=== PATIENT | female | born 1940 | race Caucasian/White ===

== ENCOUNTER 2016-08-02 11:06 | Emergency (ER) | payer MEDICARE ==
[~2016-08-02] VITALS: Ht 154.9 cm; Wt 78.8 kg
[~2016-08-02 11:06] MED LIST: ACYCLOVIR400 MG PO; ASA LOW DOSE81 MG OR; ASCORBIC ACD1000 MG PO; ASPIRIN EC81 MG PO; ASPIRIN81 MG PO; C 500 PO; CARDIZEM60 MG OR; CELEBREX200 MG PO; CLOBETASOL0.053 EX; CO Q-10400 MG PO; COMBIVENT IN; COMBIVENT RESPIMAT IN; COMBIVIR 1501 COMBO PO; COZAAR100 MG PO; COZAAR50 MG PO; CRESTOR5 MG PO; CRIXIVAN400 MG PO; DOXYCYC MONO100 M2 PO; EFFEXOR XR150 MG PO; EFFEXOR100 MG PO; ESTRACE VAG0.1 MG/GM VA; EX-LAX PO; FISH OIL1000 MG OR; FISH OIL1000 MG PO; FISH OIL1400 MG OR; HYDROCHLOROT25 MG PO; K-DUR/KLOR-CON10 MEQ OR; L-LYSINE500 M2 PO; LACTOSE PO; LACTULOSE PO; LASIX40 MG OR; LEVAQUIN500 MG PO; LIDOCAINE5 % EX; LIPITOR20 MG OR; LORTAB 5 OR; MAG OXIDE400 MG PO; NAPROSYN500 MG OR; NEXIUM40 M1 PO; NIACIN PO; OMEGA-3 KRILL500 MG OR; PERCOCET 5/321 COMBO PO; PERCOCET 5/325M1 TAB OR; PERCOCET 5/325M1 TAB PO; PREDNISONE20 MG OR; PREMARIN0.625 MG OR; PREVACID30 M2 PO; TYLOPHEN500 MG PO; ULTRAM50 MG PO; ZINC50 M1 PO; ZOFRAN ODT4 MG PO; [UNRECOGNIZED DRUG - REMARK]
[2016-08-02] MEDS ORDERED: AMLODIPINE5 MG PO (11:29)
[2016-08-02] MEDS ORDERED: DOCUSATE CAL240 MG PO (11:30)
[2016-08-02] MEDS ORDERED: VITAMIN D32000 UNIT PO (11:38)
[2016-08-02 12:23] LABS: URINE BILIRUBIN - DIPSTICK NEGATIVE (NEGATIVE); URINE BLOOD DIPSTICK TRACE-INTACT (NEGATIVE); URINE CLARITY CLEAR; URINE COLOR YELLOW; URINE GLUCOSE - DIPSTICK NEGATIVE (NEGATIVE); URINE KETONE NEGATIVE (NEGATIVE); URINE LEUK ESTERASE NEGATIVE (NEGATIVE); URINE NITRITE - DIPSTICK NEGATIVE (Negative); URINE PH 5.5 (4.5-8.0); URINE PROTEIN - DIPSTICK NEGATIVE (NEG-TRACE); URINE UROBILINOGEN - DIPSTICK 0.2 E.U./dL (0.2)
[2016-08-02] MEDS ORDERED: ULTRAM50 M1 PO (13:39)
[2016-08-02] MEDS ORDERED: FLEXERIL PO (13:39)
[2016-08-02 14:03] VITALS: BP 129/73
== END 2016-08-02 14:03 | disposition home or self-care (01) ==
LOC: ED 11:06
PROVIDERS: Emergency Medicine
DX: S73.101A Unspecified sprain of right hip, initial encounter (principal); M79.1 Myalgia; M25.551 Pain in right hip; M79.651 Pain in right thigh

== ENCOUNTER 2018-08-29 11:53 | Emergency (ER) | payer MEDICARE ==
[~2018-08-29] VITALS: Ht 154.9 cm; Wt 82.0 kg
[~2018-08-29 11:53] MED LIST changes: +AMLODIPINE5 MG PO; +ANTIVERT12.5 MG PO; +DOCUSATE CAL240 MG PO; +ESTRACE2 M1 PO; +FLEXERIL PO; +SLOW-MAG PO; +ULTRAM50 M1 PO; +VITAMIN D32000 UNIT PO
[2018-08-29] MEDS ORDERED: ASPIRIN 8181 MG PO (12:26)
[2018-08-29] MEDS ORDERED: FOLIC ACID1 MG PO (12:26)
[2018-08-29] MEDS ORDERED: MAGNESIUM 250 M1 TAB PO (12:28)
[2018-08-29] MEDS ORDERED: VITAMIN D33000 UNIT PO (12:29)
[2018-08-29] MEDS ORDERED: COLACE100 MG PO (12:30)
[2018-08-29] MEDS ORDERED: BIOTIN5000 MC1 PO (12:31)
[2018-08-29] MEDS ORDERED: LYSINE1000 MG PO (12:32)
[2018-08-29] MEDS ORDERED: TRAMADOL HYDROC50 MG PO (13:30)
[2018-08-29 13:40] VITALS: BP 119/55
== END 2018-08-29 13:40 | disposition home or self-care (01) ==
LOC: ED 11:53
DX: M19.072 Primary osteoarthritis, left ankle and foot (principal); I10 Essential (primary) hypertension

== ENCOUNTER 2018-10-16 06:46 | Day surgery (SDC) | payer MEDICARE ==
[~2018-10-16] VITALS: Ht 154.9 cm; Wt 81.6 kg
[~2018-10-16 06:46] MED LIST changes: +ASPIRIN 8181 MG PO; +BIOTIN5000 MC1 PO; +COLACE100 MG PO; +FOLIC ACID1 MG PO; +LYSINE1000 MG PO; +MAGNESIUM 250 M1 TAB PO; +NIACIN SR500 MG; +SELENIUM200 MC1 PO; +SENOKOT8.6 MG PO; +TRAMADOL HYDROC50 MG PO; +VITAMIN D33000 UNIT PO
[2018-10-16] MEDS ORDERED: CELEBREX100 M1 PO (07:04)
[2018-10-16] MEDS ORDERED: COMBIVENT RESPIMAT IN (07:05)
[2018-10-16] MEDS ORDERED: HYZAAR1 TAB PO (07:07)
[2018-10-16 08:59] VITALS: BP 143/66
== END 2018-10-16 10:28 | disposition home or self-care (01) ==
LOC: ORM 06:46
PROVIDERS: ATTEND Surgery
PROC: 0DJD8ZZ Inspection of Lower Intestinal Tract, Via Natural or Artificial Opening Endoscopic (ICD-10-PCS; principal; 2018-10-16)
PROC: 0DJ08ZZ Inspection of Upper Intestinal Tract, Via Natural or Artificial Opening Endoscopic (ICD-10-PCS; 2018-10-16)
DX: Z12.11 Encounter for screening for malignant neoplasm of colon (principal); K57.30 Diverticulosis of large intestine without perforation or abscess without bleeding; K44.9 Diaphragmatic hernia without obstruction or gangrene; K59.09 Other constipation; I10 Essential (primary) hypertension; Z86.010 Personal history of colon polyps; Z79.899 Other long term (current) drug therapy
CPT/HCPCS: 43235; G0105

== ENCOUNTER 2018-11-05 14:26 | Emergency (ER) | payer MEDICARE ==
[~2018-11-05] VITALS: Ht 154.9 cm; Wt 82.7 kg
[~2018-11-05 14:26] MED LIST changes: -AMLODIPINE5 MG PO; +CELEBREX100 M1 PO; +HYZAAR1 TAB PO; -NIACIN SR500 MG; +NIACIN SR500 MG PO; +NORVASC2.5 M1 PO
[2018-11-05] MEDS ORDERED: DOXYCYC MONO100 M2 PO (16:12)
[2018-11-05 16:20] VITALS: BP 123/60
== END 2018-11-05 16:20 | disposition home or self-care (01) ==
LOC: ED 14:26
DX: L03.116 Cellulitis of left lower limb (principal); I10 Essential (primary) hypertension

== ENCOUNTER 2018-11-12 08:14 | Inpatient (IN) | payer MEDICARE ==
[2018-11-12] VITALS (11 sets, daily range): BP systolic 116–154; BP diastolic 51–74
[~2018-11-12] VITALS: Ht 154.9 cm; Wt 90.0 kg
--- NOTE | 2018-11-12 08:14 | NUR ---
PT TO [facility] VIA WC WITH TACHYPNEA NO DISRTESS, MD TO BEDSIDE
--- NOTE | 2018-11-12 08:25 | NUR ---
PT RESTING ON STRETCHER, STATES SHE CAME INTO WORK AND STARTED FEELING SOB ON THE WALK IN ANDD DOWN THE HALLWAYS, STATES SHE HAS AN INHALER AT HOME BUT THAT HER LUNG DOCTOR DOESN'T THINK ITS HER LUNGS AND HER HEART DOCTOR SAYS ITS NOT HER HEART, SO SHE ISN'T SURE WHAT THE ACTUAL PROBLEM IS, AWARE OF PLANNED NEB TREATMENT AND LAB WORK, CALL MORGAN WITHIN REACH
[2018-11-12 09:13] LABS: HEMATOCRIT 38.1 % (37.0-47.0); HEMOGLOBIN 12.8 g/dl (12.0-16.0); IMMATURE GRANULOCYTES 0.2 % (0.0-5.0); MEAN CELL VOLUME 92.3 fL CALC (80.0-100.0); MEAN CORPUSCULAR HGB CONC 33.6 g/L CALC (32.0-36.0); NEUT# 2.46 thou/uL (2.00-7.15); RED BLOOD COUNT 4.13 mill/uL (4.20-5.60); RED CELL DISTRI WIDTH 13.4 % (11.5-15.5)
--- NOTE | 2018-11-12 09:23 | NUR ---
TOLERRATED NEB TREATMENT WELL STATES FEELING BETTER FAR SOB BUT STILL FEELS OFF AND HAS FOR A "WHILE NOW", COMFORT MEASURES REINFORCED, TELEMETRY IN PLACE AND BP STABLE, WILL CONTINUE TO MONITOR.
[2018-11-12 09:40] LABS: ALBUMIN 4.3 g/dL (3.2-5.0); ALKALINE PHOSPHATASE 59 u/l (38-126); ANION GAP 17 (6-22 (CALC)); BILIRUBIN, TOTAL 0.3 mg/dL (0.0-1.4); BUN 25 mg/dL (8-23); BUN/CREATININE RATIO 30 (12-20 (CALC)); CARBON DIOXIDE 26 mmol/l (22-30); CHLORIDE 101 mmol/l (95-108); CREATININE 0.8 mg/dL (0.5-1.0); GFR > 60 ML/MIN (>=60 (CALC)); GFR FOR AFR.AMER. > 60 ML/MIN (>=60 (CALC)); POTASSIUM 3.9 mmol/l (3.5-5.1); SGOT/AST 29 u/l (9-36); SODIUM 140 mmol/l (137-146); TOTAL PROTEIN 7.6 g/dL (6.3-8.2)
--- NOTE | 2018-11-12 10:21 | NUR ---
PT RESTING OFFERS NO COMPLAINTS, AWARE OF PLANNED CTA, IV ACCESS INTACT, STATES STILL JUST NOT FEELING "RIGHT".
--- NOTE | 2018-11-12 10:26 | NUR ---
PT AMBULATED TO BATHROOM SUPPLIES PROVIDED FOR URINE COOLECTION WELL INSTRUCTION FOR CLEANSING PRIOR TO COLLECTION
--- NOTE | 2018-11-12 11:30 | NUR ---
PT AWARE OF PLANNED ADMISSION RELATED TO CT RESULTS, PLAN OF CARE DISCUSSED, COMFORT MEASURE PROVIDED PT HAS 20G IN LEFT AC STARTED BY CT SCAN FOR CTA EARLIER, SITE SECURED UPON RETURN. CALL MORGAN WITHIN REACH
[2018-11-12 11:41] LABS: PROTHROMBIN TIME 10.2 SECONDS (9.0-12.5)
--- NOTE | 2018-11-12 12:23 | NUR ---
PT REMAINS IN RADIOLOGY AWARE OF NEED BC AND LAB WORK WELL PLANNED HEPARIN GTT UPON RETURN FROM RADIOLOGY.
--- NOTE | 2018-11-12 14:05 | NUR ---
IV ABT INFUSING PT TOLERATTEING WITHOUT INCIDENT, AWARE OF PLANNED ADMISSION AND PLAN OF CARE, CALL MORGAN WITHIN REACH
--- NOTE | 2018-11-12 14:30 | NUR ---
REPORT CALLED TO LUI RN IN ICU AWARE OF NEXT PTT DUE AT 191
--- NOTE | 2018-11-12 15:00 | NUR ---
PT TO ICU ROOM 2 VIA STRECTCHER ACCOMPNIED BY ER NURSE. PT ABLE TO TRANSFER FROM STRETCHER TO BED BY SELF. PT ADMITTER FOR PULMONARY EMBOLI. RESP ARE EVEN AND UNLABORED. O2 SAT 98% ON O2 2L NC. NO [place] NOTED. LUNGS ARE CLEAR THROUGHOUT. ADMISSION ASSESSMENT COMPLETED AT THIS TIME. IV PATENT X1. HEPARIN DRIP INFUSING PER FLOW SHEET AND PROTOCOL. ORIENTED PT TO ROOM AND UNIT. CALL LIGHT IN REACH. WILL CONTINUE TO MONITOR.
--- NOTE | 2018-11-12 15:15 | NUR ---
PT TRANSFERRED TO ICU BED 2 VIA STRETCHER ON HEPARIN GTT AND MONITOR . VSS STABLE PT AWARE OF PENDING PTT DUE AT 1915 PM, ACEPTING NURSES AT BEDSIDE UPON ARRRIVAL TO UNIT.
--- NOTE | 2018-11-12 17:12 | NUR ---
PT RESTING IN BED READING BOOK RESP ARE EVEN AND UNLABORED. NO DISTRESS NOTED. CALL LIGHT IN REACH. WILL CONTINUE TO MONITOR.
--- NOTE | 2018-11-12 17:30 | NUR ---
PT SET UP FOR PM MEAL
--- NOTE | 2018-11-12 17:40 | NUR ---
DR BLANDON AT BEDSIDE AT THIS TIME
--- NOTE | 2018-11-12 18:17 | NUR ---
PT SITTING UP IN BED READING BOOK. RESP ARE EVEN AND UNLABORED. NO DISTRESS NOTED. CALL LIGHT IN REACH. WILL CONTINUE TO MONITOR.
--- NOTE | 2018-11-12 18:24 | NUR ---
LAB AT BEDSIDE AT THIS TIME
--- NOTE | 2018-11-12 19:45 | NUR ---
ASSESSMENT COMPLETED. PT. WITHOUT IV SITE AT THIS TIME AND PER REPORT MD IS AWARE OF NO IV ACCESS. VS OBTAINED. PT. HAS MULTIPLE SMALL OPEN AREAS AND BLISTERING NOTED TO RIGHT ARM, PHOTOS ARE IN CHART. PT. DENIES NEEDS/PAIN. SILVEIRA CATHETER INTACT AND DRAINING AT GRAVITY LEVEL. BEAR HUGGER IN PLACE TEMP 96.8. UPDATED ON POC. ENCOURAGED TO CALL FOR ANY NEEDS. CALL LIGHT IS IN REACH.
--- NOTE | 2018-11-12 20:00 | NUR ---
ASSESSMENT COMPLETED. NO DISTRESS NOTED; DENIES NEEDS/PAIN. FRESH WATER PROVIDED. IV SITES X2 PATENT AND HEPARIN GTT INFUSING @1400UNITS/HR; AWAITING PTT RESULT FOR ADJUSTMENT. ON [employer] ADVISOR AND REMAINS SR-STACH; VSS. INSTRUCTED TO CALL FOR ANY NEEDS. CALL LIGHT IS IN REACH. WILL CONTINUE TO MONITOR.
--- NOTE | 2018-11-12 20:15 | NUR ---
@2011 RECEIVED PTT CRITICAL LAB OF 166.9; VERIFIED HEPARIN ADJUSTMENT PER PROTOCOL WITH OTHER ICU NURSE AND ADJUSTED PER PROTOCOL SHEET; SEE FLOWSHEET.PT. UPDATED AND VERBALIZES UNDERSTANDING.
--- NOTE | 2018-11-12 21:15 | NUR ---
HEPARIN GTT RESTARTED PER PROTOCOL. CPAP AT BEDSIDE (RT SET UP). PT. VOICES NO CONCERNS. CALL LIGHT IS IN REACH. WILL CONTINUE TO MONITOR. INSTRUCTED TO CALL FOR ALL OOB NEEDS.
--- NOTE | 2018-11-12 23:00 | NUR ---
PT. SITTING UP IN BED WITH NO DISTRESS NOTED; DENIES NEEDS/PAIN. VSS. HEPARIN GTT INFUSING WITHOUT DIFFICULTIES. ENCOURAGED TO CALL FOR ANY NEEDS. CALL LIGHT IS IN REACH. WILL CONTINUE TO MONITOR.
[2018-11-13] VITALS (12 sets, daily range): BP systolic 116–147; BP diastolic 57–68
--- NOTE | 2018-11-13 02:15 | NUR ---
RESTING IN BED ON LEFT SIDE WITH EYES CLOSED; CPAP IN PLACE. NO DISTRESS NOTED. RESP. EVEN AND UNLABORED. CALL LIGHT IS IN REACH.
[2018-11-13 03:17] LABS: HEMATOCRIT 35.2 % (37.0-47.0); HEMOGLOBIN 11.6 g/dl (12.0-16.0); MEAN CELL VOLUME 93.6 fL CALC (80.0-100.0); MEAN CORPUSCULAR HGB 30.9 pG CALC (26.0-32.0); RED BLOOD COUNT 3.76 mill/uL (4.20-5.60); RED CELL DISTRI WIDTH 13.6 % (11.5-15.5)
--- NOTE | 2018-11-13 03:39 | NUR ---
PT. C/O GENERALIZED PAIN AND SEXTON 4/10; MEDICATED WITH ORDERED TYLENOL; WILL REASSESS. ASSISTED OOB TO BSC TO VOID AND BACK TO BED. PT. WITH STEADY GAIT. NO DISTRESS NOTED; DENIES FURTHER NEEDS. CALL LIGHT IS IN REACH.
[2018-11-13 03:56] LABS: ANION GAP 13 (6-22 (CALC)); BUN 20 mg/dL (8-23); BUN/CREATININE RATIO 21 (12-20 (CALC)); CARBON DIOXIDE 26 mmol/l (22-30); CHLORIDE 105 mmol/l (95-108); CREATININE 0.9 mg/dL (0.5-1.0); GFR 60 ML/MIN (>=60 (CALC)); GFR FOR AFR.AMER. > 60 ML/MIN (>=60 (CALC)); POTASSIUM 4.7 mmol/l (3.5-5.1); SODIUM 139 mmol/l (137-146)
--- NOTE | 2018-11-13 04:20 | NUR ---
ADJUSTED HEPARIN GTT PER PROTOCOL BASED OFF PTT. PT. UPDATED WITH POC. DENIES NEEDS. CALL LIGHT IS IN REACH.
--- NOTE | 2018-11-13 07:30 | NUR ---
PT SITTING UP IN BED AWAKRE. PT IS ALERT AND ORIENTED X3. SHIFT ASSESSMENT COMPLETED AT THIS TIME. IV PATENT X2. PT VOICES NO COMPLAINTS AT THIS TIME. CALL LIGHT IN REACH. WILL CONTINUE TO MONITOR.
--- NOTE | 2018-11-13 08:15 | NUR ---
PT SET UP FOR AM MEAL
--- NOTE | 2018-11-13 09:00 | NUR ---
PT ASSISTED TO BSC TO VOID PT TOLERATED WELL.
--- NOTE | 2018-11-13 09:55 | NUR ---
LAB AT BEDSIDE AT THIS TIME
--- NOTE | 2018-11-13 10:02 | NUR ---
DR BLANDON AT BEDSIDE AT THIS TIME
--- NOTE | 2018-11-13 10:49 | NUR ---
HEPARIN STOPPED AT THIS TIME PER MD ORDER
--- NOTE | 2018-11-13 11:40 | NUR ---
PT SET UP FOR NOON MEAL
--- NOTE | 2018-11-13 11:56 | NUR ---
ECHO AT BEDSIDE AT THIS TIME.
--- NOTE | 2018-11-13 13:30 | NUR ---
PT ASSISTED AT THIS TIME WITH HYGIENE. PT TOLERATED WELL.
--- NOTE | 2018-11-13 14:33 | NUR ---
VISITORS AT BEDSIDE AT THIS TIME
--- NOTE | 2018-11-13 16:00 | NUR ---
PT RESTING IN BED ASLEEP. RESP ARE EVEN AND UNLABORED. NO DISTRESS NOTED. CALL LIGHT IN REACH. WILL CONTINUE TO MONITOR.
--- NOTE | 2018-11-13 17:30 | NUR ---
PT SET UP WITH PM MEAL
--- NOTE | 2018-11-13 18:18 | NUR ---
PT SITTING UP IN BED. RESP ARE EVEN AND UNLABORED. NO DISTRESS NOTED. CALL LIGHT IN REACH. WILL CONTINUE TO MONITOR.
--- NOTE | 2018-11-13 19:25 | NUR ---
PATIENT SITS WITH HOB NEAR 90 DEGREES, HAS A VISITOR AT BEDSIDE WHOM STEPS OUT SO PATIENT CAN BE ASSESSED. PT ALERT AND ORIENTED X4. ON 2L/MIN NC, SATS 99%. AFEBRILE. ALERT AND ORIENTED X4. HEAD TO TOE NURSING ASSESSMENT PERFORMED, SEE CHARTING. LAC 20 G IV INTACT AND SALINE LOCKED. SR ON TELEMETRY, HR 70 BPM. SELF REPOSITIONS. POC FOR TONIGHT DISCUSSED. CALL LIGHT WITHIN REACH. WILL CONTINUE TO MONITOR.
--- NOTE | 2018-11-13 21:08 | NUR ---
PATIENT ABLE TO TOLERATE HER BEDTIME MEDICATIONS. ISREAL CRACKERS PROVIDED PER REQUEST. PAIN MEDICATION GIVEN PER REQUEST. SITS UP NEAR 90 DEGREES, WATCHES TV. AGREES TO CALL WHEN READY FOR HOME CPAP. CALL LIGHT WITHIN REACH.-
--- NOTE | 2018-11-13 22:17 | NUR ---
PATIENT SITS NEAR 90 DEGREES. WATCHES TV. NO ACUTE DISTRESS NOTED. ON2L/MIN NC. CALL LIGHT WITHIN REACH, SR ON TELEMETRY.
--- NOTE | 2018-11-13 23:46 | NUR ---
PATIENT ASSISTED TO BSC WITH STANDBY ASSIST. NO DIFFICULTY STANDING OR WALKING TO BSC. 400 ML VOIDED, YELLOW AND CLEAR. NOW PLACED ON HOME CPAP WITH 2L/MIN O2. NO ACUTE DISTRESS SHOWN. CALL LIGHT WITHIN REACH.
[2018-11-14 02:00] VITALS: BP 113/57
--- NOTE | 2018-11-14 02:22 | NUR ---
PATIENT LAYS ON R-SIDE. CPAP IN PLACE. AROUSES EASILY WITH VERBAL STIMULI. SR ON TELEMETRY. NO NEEDS AT THIS TIME. CALL LIGHT WITHIN REACH.
[2018-11-14 04:16] LABS: HEMATOCRIT 34.4 % (37.0-47.0); HEMOGLOBIN 11.3 g/dl (12.0-16.0); MEAN CELL VOLUME 93.7 fL CALC (80.0-100.0); MEAN CORPUSCULAR HGB 30.8 pG CALC (26.0-32.0); MEAN CORPUSCULAR HGB CONC 32.8 g/L CALC (32.0-36.0); RED BLOOD COUNT 3.67 mill/uL (4.20-5.60); RED CELL DISTRI WIDTH 13.3 % (11.5-15.5)
[2018-11-14 04:17] VITALS: BP 113/56
--- NOTE | 2018-11-14 04:18 | NUR ---
patient lies on her right side, cpap remains on. patient sats 98%. pt arouses easily with verbal stimuli. afebrile. sr on telemetry. no needs at this time. no acute distres shsown. call light within reach.
[2018-11-14 04:35] LABS: ANION GAP 10 (6-22 (CALC)); BUN 16 mg/dL (8-23); BUN/CREATININE RATIO 22 (12-20 (CALC)); CARBON DIOXIDE 26 mmol/l (22-30); CHLORIDE 106 mmol/l (95-108); CREATININE 0.8 mg/dL (0.5-1.0); GFR > 60 ML/MIN (>=60 (CALC)); GFR FOR AFR.AMER. > 60 ML/MIN (>=60 (CALC)); POTASSIUM 3.8 mmol/l (3.5-5.1); SODIUM 139 mmol/l (137-146)
[2018-11-14 06:00] VITALS: BP 160/70
--- NOTE | 2018-11-14 06:00 | NUR ---
patient lies on her r-side. cpap in place. no acute distres shsown. no needs at this time. call light within reach.
--- NOTE | 2018-11-14 07:30 | NUR ---
PT SITTING UP IN BED, EATING BREAKFAST. MEDICATED FOR CHRONIC PAIN.
--- NOTE | 2018-11-14 07:53 | NUR ---
PT DENIES SOB. 02 98-99% ON RA, NC LEFT OFF AT THIS TIME. PT STATES SHE "FEELS GOOD THIS MORNING AFTER GETTING SOME SLEEP". BREATHING EVEN/UNLABORED, UPPER LUNGS CTA, MIDDLE/LOWER LOBES DIMINISHED. ABD SOFT/NONTENDER/ACTIVE BS. SKIN WARM/DRY/PINK. NSR ON TELE, NO EDEMA, -3SEC CAP REFILL, STRONG PULSES x4. PT A&Ox3, CLEAR SPEECH, ADMINISTRATIVE AND PROGRAM SPECIALIST EVEN. STEWART.
[2018-11-14 08:00] VITALS: BP 128/61
--- NOTE | 2018-11-14 08:29 | NUR ---
DR BLANDON @BEDSIDE WITH PT. REQUEST WALK/O2 STUDY.
[2018-11-14] MEDS ORDERED: ELIQUIS5 MG PO (08:33)
[2018-11-14] MEDS ORDERED: TRAMADOL HCL50 MG PO (08:33)
--- NOTE | 2018-11-14 08:33 | NUR ---
LENI FROM [facility] CALLED TO ASSIST WITH HOME MEDICATION COSTS.
--- NOTE | 2018-11-14 09:37 | NUR ---
PTS FACESHEET & RX x2 FAXED TO LENI @[facility] TO ASSIST WITH FINANCIAL RESPONSIBILITY ON PT.
[2018-11-14 10:00] VITALS: BP 130/61
--- NOTE | 2018-11-14 10:22 | NUR ---
PT UPDATED ON MEDICATION COST OF $6.31 FOR RXx2 THIS MONTH AND POC TODAY PRIOR TO DC. SON @BEDSIDE.
--- NOTE | 2018-11-14 10:34 | NUR ---
JOSELO @BEDSIDE FOR ROUNDS.
[2018-11-14 12:00] VITALS: BP 137/69
--- NOTE | 2018-11-14 12:04 | NUR ---
DC PENDING ABX COMPLETIONS.
--- NOTE | 2018-11-14 12:34 | NUR ---
PT EDUCATED ON DC INSTRUCTIONS; INCLUDING RX x2, MEDS TO STOP x2, WHEN TO RETURN TO ER. PTS WILL PICK HER UP WITH THE DOGS UPON ABX COMPLETIONS.
--- NOTE | 2018-11-14 13:00 | NUR ---
PT UP, WALKING AROUND ROOM, GETTING DRESSED, USING STEADY GAIT. PT DENIES DIZZINESS, DYPNEA. PT UNABLE TO FIND HER DON SHORTS BUT HER STATES THEY ARE AT HOME. PT WILL GO HOME IN [facility] NOW PENDING MEDICATIONS FROM [facility].
--- NOTE | 2018-11-14 13:26 | NUR ---
NICOLÁS @BEDSIDE, DELIVERING RX x2. [facility] CALLED FOR TRANSPORTATION OUT.
--- NOTE | 2018-11-14 13:30 | NUR ---
PT AMBULATED FROM BED TO WITH STEADY GAIT. BREATHING EVEN/UNLABORED. DENIES DIZZINESS/SOB. [facility] TOOK PT DOWN TO WAITING AT ENTRANCE. PT THANKED STAFF FOR HER CARE.
== END 2018-11-14 13:30 | disposition home or self-care (01) | DRG 175 ==
LOC: ED 08:14 → ED-I 11:23 → ED 11:45 → ICU 11:46
PROVIDERS: ADMIT Internal Medicine; ATTEND Internal Medicine
DX: I26.99 Other pulmonary embolism without acute cor pulmonale (principal); J18.9 Pneumonia, unspecified organism; T38.5X5A Adverse effect of other estrogens and progestogens, initial encounter; I10 Essential (primary) hypertension; F32.9 Major depressive disorder, single episode, unspecified; M19.90 Unspecified osteoarthritis, unspecified site; Z90.5 Acquired absence of kidney; Z85.528 Personal history of other malignant neoplasm of kidney
CPT/HCPCS: J1644; Q9967

== ENCOUNTER 2018-11-19 12:56 | Emergency (ER) | payer MEDICARE ==
[~2018-11-19] VITALS: Ht 154.9 cm; Wt 91.5 kg
[~2018-11-19 12:56] MED LIST changes: +ELIQUIS5 MG PO; +TRAMADOL HCL50 MG PO
[2018-11-19] MEDS ORDERED: NAPROXEN500 MG PO (14:59)
[2018-11-19 15:06] VITALS: BP 148/67
[2018-11-19] MEDS ORDERED: ULTRAM50 M1 PO (15:52)
== END 2018-11-19 16:08 | disposition home or self-care (01) ==
LOC: ED 12:56
PROC: 0RSJXZZ Reposition Right Shoulder Joint, External Approach (ICD-10-PCS; principal; 2018-11-19)
DX: S43.014A Anterior dislocation of right humerus, initial encounter (principal); S63.601A Unspecified sprain of right thumb, initial encounter; S93.501A Unspecified sprain of right great toe, initial encounter; I10 Essential (primary) hypertension; W01.0XXA Fall on same level from slipping, tripping and stumbling without subsequent striking against object, initial encounter; Y92.009 Unspecified place in unspecified non-institutional (private) residence as the place of occurrence of the external cause

== ENCOUNTER 2018-12-02 13:16 | Emergency (ER) | payer MEDICARE ==
[~2018-12-02] VITALS: Ht 154.9 cm; Wt 81.4 kg
[~2018-12-02 13:16] MED LIST changes: +NAPROXEN500 MG PO
[2018-12-02 13:56] LABS: HEMATOCRIT 41.2 % (37.0-47.0); HEMOGLOBIN 13.5 g/dl (12.0-16.0); IMMATURE GRANULOCYTES 0.2 % (0.0-5.0); MEAN CELL VOLUME 92.2 fL CALC (80.0-100.0); MEAN CORPUSCULAR HGB 30.2 pG CALC (26.0-32.0); MEAN CORPUSCULAR HGB CONC 32.8 g/L CALC (32.0-36.0); NEUT# 1.83 thou/uL (2.00-7.15); RED BLOOD COUNT 4.47 mill/uL (4.20-5.60); RED CELL DISTRI WIDTH 13.2 % (11.5-15.5)
[2018-12-02 14:02] LABS: ACT PARTIAL THROMBO TIME 27.1 SECONDS (20.0-32.5); PROTHROMBIN TIME 10.5 SECONDS (9.0-12.5)
[2018-12-02 14:44] LABS: ALBUMIN 4.7 g/dL (3.2-5.0); ALKALINE PHOSPHATASE 58 u/l (38-126); ANION GAP 15 (6-22 (CALC)); BUN 22 mg/dL (8-23); BUN/CREATININE RATIO 26 (12-20 (CALC)); CARBON DIOXIDE 27 mmol/l (22-30); CHLORIDE 100 mmol/l (95-108); CREATININE 0.9 mg/dL (0.5-1.0); GFR 60 ML/MIN (>=60 (CALC)); GFR FOR AFR.AMER. > 60 ML/MIN (>=60 (CALC)); POTASSIUM 4.1 mmol/l (3.5-5.1); SGOT/AST 27 u/l (9-36); SODIUM 139 mmol/l (137-146)
[2018-12-02 14:47] LABS: BILIRUBIN, TOTAL 0.7 mg/dL (0.0-1.4)
[2018-12-02 16:11] VITALS: BP 215/97
== END 2018-12-02 16:22 | disposition home or self-care (01) ==
LOC: ED 13:16
PROC: 0RSJXZZ Reposition Right Shoulder Joint, External Approach (ICD-10-PCS; principal; 2018-12-02)
DX: S43.004A Unspecified dislocation of right shoulder joint, initial encounter (principal); I10 Essential (primary) hypertension; X50.0XXA Overexertion from strenuous movement or load, initial encounter

== ENCOUNTER 2019-02-28 | Emergency (ER) | payer MEDICARE ==
[2019-02-28] MEDS ORDERED: CELEBREX100 M1 PO (19:00)
== END 2019-02-28 20:45 | disposition home or self-care (01) ==
PROC: 0RSJXZZ Reposition Right Shoulder Joint, External Approach (ICD-10-PCS; principal; 2019-02-28)
DX: M24.411 Recurrent dislocation, right shoulder (principal); I10 Essential (primary) hypertension

== ENCOUNTER 2019-03-08 | Emergency (ER) | payer MEDICARE | END 2019-03-08 18:11 | disposition home or self-care (01) | PROC: 0RSJXZZ Reposition Right Shoulder Joint, External Approach (ICD-10-PCS; principal; 2019-03-08) | DX: M24.411 Recurrent dislocation, right shoulder (principal); I10 Essential (primary) hypertension | CPT/HCPCS: J2060 ==

== ENCOUNTER 2019-03-13 | Emergency (ER) | payer MEDICARE ==
[2019-03-13 13:31] LABS: HEMATOCRIT 39.3 % (37.0-47.0); HEMOGLOBIN 12.9 g/dl (12.0-16.0); IMMATURE GRANULOCYTES 0.4 % (0.0-5.0); MEAN CELL VOLUME 94.5 fL CALC (80.0-100.0); MEAN CORPUSCULAR HGB CONC 32.8 g/L CALC (32.0-36.0); NEUT# 2.69 thou/uL (2.00-7.15); RED BLOOD COUNT 4.16 mill/uL (4.20-5.60); RED CELL DISTRI WIDTH 13.8 % (11.5-15.5)
[2019-03-13 13:45] LABS: ALBUMIN 4.4 g/dL (3.2-5.0); ALKALINE PHOSPHATASE 41 u/l (38-126); ANION GAP 13 (6-22 (CALC)); BILIRUBIN, TOTAL 0.5 mg/dL (0.0-1.4); BUN 28 mg/dL (8-23); BUN/CREATININE RATIO 32 (12-20 (CALC)); CARBON DIOXIDE 28 mmol/l (22-30); CHLORIDE 101 mmol/l (95-108); CREATININE 0.9 mg/dL (0.5-1.0); GFR 60 ML/MIN (>=60 (CALC)); GFR FOR AFR.AMER. > 60 ML/MIN (>=60 (CALC)); POTASSIUM 3.9 mmol/l (3.5-5.1); SGOT/AST 24 u/l (9-36); SODIUM 138 mmol/l (137-146); TOTAL PROTEIN 7.6 g/dL (6.3-8.2)
== END 2019-03-13 16:45 | disposition home or self-care (01) ==
PROC: 0RSJXZZ Reposition Right Shoulder Joint, External Approach (ICD-10-PCS; principal; 2019-03-13)
DX: M24.411 Recurrent dislocation, right shoulder (principal); I10 Essential (primary) hypertension

== ENCOUNTER 2019-04-01 | Emergency (ER) | payer MEDICARE ==
[2019-04-01 11:13] LABS: NEUT# 1.12 thou/uL (2.00-7.15); RED CELL DISTRI WIDTH 13.6 % (11.5-15.5)
[2019-04-01 13:06] LABS: RED BLOOD COUNT 3.88 mill/uL (4.20-5.60)
[2019-04-01 13:07] LABS: HEMATOCRIT 37.1 % (37.0-47.0); HEMOGLOBIN 12.1 g/dl (12.0-16.0)
[2019-04-01 13:08] LABS: ALBUMIN 3.7 g/dL (3.2-5.0); ALKALINE PHOSPHATASE 40 u/l (38-126); ANION GAP 10 (6-22 (CALC)); BILIRUBIN, TOTAL 0.5 mg/dL (0.0-1.4); BUN 19 mg/dL (8-23); BUN/CREATININE RATIO 21 (12-20 (CALC)); CARBON DIOXIDE 27 mmol/l (22-30); CHLORIDE 103 mmol/l (95-108); CREATININE 0.9 mg/dL (0.5-1.0); GFR 60 ML/MIN (>=60 (CALC)); GFR FOR AFR.AMER. > 60 ML/MIN (>=60 (CALC)); MEAN CELL VOLUME 95.6 fL CALC (80.0-100.0); MEAN CORPUSCULAR HGB 31.2 pG CALC (26.0-32.0); MEAN CORPUSCULAR HGB CONC 32.6 g/L CALC (32.0-36.0); POTASSIUM 4.1 mmol/l (3.5-5.1); SGOT/AST 19 u/l (9-36); SODIUM 136 mmol/l (137-146); TOTAL PROTEIN 6.6 g/dL (6.3-8.2)
[2019-04-01 13:09] LABS: IMMATURE GRANULOCYTES 0.4 % (0.0-5.0)
[2019-04-01 13:18] LABS: PROTHROMBIN TIME 10.7 SECONDS (9.0-12.5)
[2019-04-01 13:20] LABS: MYOGLOBIN 31 ng/mL (0 - 62)
[2019-04-01] MEDS ORDERED: PERCOCET 5/325M1 TAB PO (14:49)
== END 2019-04-01 16:20 | disposition home or self-care (01) ==
PROVIDERS: Family Medicine
PROC: 0RSJXZZ Reposition Right Shoulder Joint, External Approach (ICD-10-PCS; principal; 2019-04-01)
DX: M24.411 Recurrent dislocation, right shoulder (principal); I10 Essential (primary) hypertension; R11.0 Nausea; R00.1 Bradycardia, unspecified; Z79.01 Long term (current) use of anticoagulants

== ENCOUNTER 2019-04-04 | Emergency (ER) | payer MEDICARE | END 2019-04-04 21:23 | disposition home or self-care (01) | DX: M24.411 Recurrent dislocation, right shoulder (principal); I10 Essential (primary) hypertension ==

== ENCOUNTER 2019-04-15 | Emergency (ER) | payer MEDICARE ==
[2019-04-15 07:43] LABS: HEMATOCRIT 34.4 % (37.0-47.0); HEMOGLOBIN 11.3 g/dl (12.0-16.0); IMMATURE GRANULOCYTES 0.4 % (0.0-5.0); MEAN CELL VOLUME 95.8 fL CALC (80.0-100.0); MEAN CORPUSCULAR HGB 31.5 pG CALC (26.0-32.0); MEAN CORPUSCULAR HGB CONC 32.8 g/L CALC (32.0-36.0); NEUT# 3.35 thou/uL (2.00-7.15); RED BLOOD COUNT 3.59 mill/uL (4.20-5.60); RED CELL DISTRI WIDTH 13.4 % (11.5-15.5)
[2019-04-15 08:06] LABS: ALBUMIN 3.7 g/dL (3.2-5.0); ALKALINE PHOSPHATASE 36 u/l (38-126); ANION GAP 11 (6-22 (CALC)); BILIRUBIN, TOTAL 0.5 mg/dL (0.0-1.4); BUN 21 mg/dL (8-23); BUN/CREATININE RATIO 27 (12-20 (CALC)); CARBON DIOXIDE 24 mmol/l (22-30); CHLORIDE 107 mmol/l (95-108); CREATININE 0.8 mg/dL (0.5-1.0); GFR > 60 ML/MIN (>=60 (CALC)); GFR FOR AFR.AMER. > 60 ML/MIN (>=60 (CALC)); POTASSIUM 4.2 mmol/l (3.5-5.1); SGOT/AST 22 u/l (9-36); SODIUM 138 mmol/l (137-146); TOTAL PROTEIN 6.5 g/dL (6.3-8.2)
== END 2019-04-15 09:30 | disposition home or self-care (01) ==
PROC: 0RSJXZZ Reposition Right Shoulder Joint, External Approach (ICD-10-PCS; principal; 2019-04-15)
DX: M24.411 Recurrent dislocation, right shoulder (principal); I10 Essential (primary) hypertension; R00.1 Bradycardia, unspecified; I95.2 Hypotension due to drugs; T40.2X5A Adverse effect of other opioids, initial encounter

== ENCOUNTER 2020-11-10 09:18 | Emergency (ER) | payer MEDICARE ==
[~2020-11-10] VITALS: Ht 154.9 cm; Wt 79.5 kg
[~2020-11-10 09:18] MED LIST changes: +BIOTIN MAXI10000 MC1 PO; +LEXAPRO10 MG PO; +LOSARTAN POTAS100 MG PO; +PROBIOTIC PO; +WARFARIN SODIU2.5 MG PO
[2020-11-10 10:49] LABS: HEMATOCRIT 36.5 % (37.0-47.0); HEMOGLOBIN 11.9 g/dl (12.0-16.0); IMMATURE GRANULOCYTES 2.9 % (0.0-5.0); MEAN CELL VOLUME 94.8 fL CALC (80.0-100.0); MEAN CORPUSCULAR HGB 30.9 pG CALC (26.0-32.0); MEAN CORPUSCULAR HGB CONC 32.6 g/dL CAL (32.0-36.0); NEUT# 4.61 thou/uL (2.00-7.15); RED BLOOD COUNT 3.85 mill/uL (4.20-5.60); RED CELL DISTRI WIDTH 13.2 % (11.5-15.5)
[2020-11-10 10:58] LABS: ALBUMIN 3.9 g/dL (3.2-5.0); ALKALINE PHOSPHATASE 74 u/l (38-126); ANION GAP 15 (6-22 (CALC)); BUN 15 mg/dL (8-23); BUN/CREATININE RATIO 15 (12-20 (CALC)); CARBON DIOXIDE 26 mmol/l (22-30); CHLORIDE 98 mmol/l (95-108); GFR 53 ML/MIN (>=60 (CALC)); GFR FOR AFR.AMER. > 60 ML/MIN (>=60 (CALC)); POTASSIUM 3.7 mmol/l (3.5-5.1); SODIUM 135 mmol/l (137-146); TOTAL PROTEIN 6.8 g/dL (6.3-8.2)
[2020-11-10 10:59] LABS: BILIRUBIN, TOTAL 0.6 mg/dL (0.0-1.4); SGOT/AST 83 u/l (9-36)
[2020-11-10 12:58] LABS: URINE BLOOD DIPSTICK MODERATE (NEGATIVE); URINE COLOR YELLOW; URINE GLUCOSE - DIPSTICK NEGATIVE (NEGATIVE); URINE KETONE 15 mg/dL (NEGATIVE); URINE LEUK ESTERASE TRACE (NEGATIVE); URINE PROTEIN - DIPSTICK TRACE mg/dL (NEG-TRACE); URINE SPECIFIC GRAVITY 1.015; URINE UROBILINOGEN - DIPSTICK 0.2 E.U./dL (0.2)
[2020-11-10 13:01] LABS: URINE BILIRUBIN - DIPSTICK SMALL (NEGATIVE); URINE NITRITE - DIPSTICK NEGATIVE (Negative)
[2020-11-10 13:02] LABS: URINE EPITHELIAL CELLS FEW EPI/hpf (0-FEW); URINE MUCUS FEW hpf (NONE-FEW); URINE WBC 0-2 WBC/hpf (0-5)
[2020-11-10 15:30] VITALS: BP 129/54
[2020-11-10] MEDS ORDERED: PREDNISONE50 MG PO (15:41)
== END 2020-11-10 17:14 | disposition home or self-care (01) ==
LOC: ED 09:18
PROVIDERS: Family Medicine
DX: T78.40XA Allergy, unspecified, initial encounter (principal); E87.2 Acidosis; R50.9 Fever, unspecified; I10 Essential (primary) hypertension; C80.1 Malignant (primary) neoplasm, unspecified; F32.9 Major depressive disorder, single episode, unspecified; J45.909 Unspecified asthma, uncomplicated; X58.XXXA Exposure to other specified factors, initial encounter; Z86.711 Personal history of pulmonary embolism; Z79.899 Other long term (current) drug therapy; Z20.822 Contact with and (suspected) exposure to COVID-19

== ENCOUNTER 2020-11-18 08:25 | Emergency (ER) | payer MEDICARE ==
[~2020-11-18] VITALS: Ht 154.9 cm; Wt 72.0 kg
[~2020-11-18 08:25] MED LIST changes: +PREDNISONE50 MG PO
[2020-11-18 09:44] LABS: URINE BLOOD DIPSTICK SMALL (NEGATIVE); URINE COLOR YELLOW; URINE GLUCOSE - DIPSTICK NEGATIVE (NEGATIVE); URINE KETONE >=80 mg/dL (NEGATIVE); URINE LEUK ESTERASE NEGATIVE (NEGATIVE); URINE PROTEIN - DIPSTICK TRACE mg/dL (NEG-TRACE); URINE SPECIFIC GRAVITY 1.015
[2020-11-18 09:48] LABS: URINE BILIRUBIN - DIPSTICK SMALL (NEGATIVE); URINE NITRITE - DIPSTICK NEGATIVE (Negative)
[2020-11-18 09:49] LABS: URINE EPITHELIAL CELLS FEW EPI/hpf (0-FEW)
[2020-11-18 10:01] LABS: GFR > 60 ML/MIN (>=60 (CALC)); GFR FOR AFR.AMER. > 60 ML/MIN (>=60 (CALC))
[2020-11-18 10:09] LABS: HEMATOCRIT 38.9 % (37.0-47.0); HEMOGLOBIN 12.8 g/dl (12.0-16.0); IMMATURE GRANULOCYTES 0.8 % (0.0-5.0); MEAN CELL VOLUME 93.7 fL CALC (80.0-100.0); MEAN CORPUSCULAR HGB 30.8 pG CALC (26.0-32.0); MEAN CORPUSCULAR HGB CONC 32.9 g/dL CAL (32.0-36.0); NEUT# 2.38 thou/uL (2.00-7.15); RED BLOOD COUNT 4.15 mill/uL (4.20-5.60); RED CELL DISTRI WIDTH 14.5 % (11.5-15.5)
[2020-11-18 10:18] LABS: ALBUMIN 3.7 g/dL (3.2-5.0); ALKALINE PHOSPHATASE 66 u/l (38-126); ANION GAP 11 (6-22 (CALC)); BUN 11 mg/dL (8-23); BUN/CREATININE RATIO 19 (12-20 (CALC)); CARBON DIOXIDE 30 mmol/l (22-30); CHLORIDE 96 mmol/l (95-108); CREATININE 0.6 mg/dL (0.5-1.0); GFR > 60 ML/MIN (>=60 (CALC)); GFR FOR AFR.AMER. > 60 ML/MIN (>=60 (CALC)); POTASSIUM 3.4 mmol/l (3.5-5.1); SGOT/AST 34 u/l (9-36); SODIUM 134 mmol/l (137-146); TOTAL PROTEIN 6.8 g/dL (6.3-8.2)
[2020-11-18 10:19] LABS: BILIRUBIN, TOTAL 0.9 mg/dL (0.0-1.4)
[2020-11-18 10:28] LABS: LIPASE 307 u/l (23-300)
[2020-11-18 17:01] VITALS: BP 155/74
== END 2020-11-18 17:03 ==
LOC: ED 08:25
PROVIDERS: Family Medicine
DX: R13.10 Dysphagia, unspecified (principal); R00.0 Tachycardia, unspecified; I10 Essential (primary) hypertension; J45.909 Unspecified asthma, uncomplicated; F32.9 Major depressive disorder, single episode, unspecified; Z86.711 Personal history of pulmonary embolism; Z90.5 Acquired absence of kidney; Z85.528 Personal history of other malignant neoplasm of kidney
CPT/HCPCS: Q9967

== ENCOUNTER 2021-05-24 12:15 | Emergency (ER) | payer MEDICARE ==
[2021-05-24] VITALS (10 sets, daily range): BP systolic 94–129; BP diastolic 45–60
[~2021-05-24] VITALS: Ht 154.9 cm; Wt 62.0 kg
[2021-05-24] MEDS ORDERED: ZINC50 MG PO (13:41)
[2021-05-24] MEDS ORDERED: ASPIRIN81 MG PO (13:41)
[2021-05-24 13:43] LABS: HEMATOCRIT 37.6 % (37.0-47.0); HEMOGLOBIN 12.1 g/dl (12.0-16.0); IMMATURE GRANULOCYTES 0.3 % (0.0-5.0); MEAN CELL VOLUME 96.9 fL CALC (80.0-100.0); MEAN CORPUSCULAR HGB 31.2 pG CALC (26.0-32.0); MEAN CORPUSCULAR HGB CONC 32.2 g/dL CAL (32.0-36.0); NEUT# 1.65 thou/uL (2.00-7.15); RED BLOOD COUNT 3.88 mill/uL (4.20-5.60); RED CELL DISTRI WIDTH 14.3 % (11.5-15.5)
[2021-05-24 13:55] LABS: ALBUMIN 3.8 g/dL (3.2-5.0); ALKALINE PHOSPHATASE 66 u/l (38-126); ANION GAP 12 (6-22 (CALC)); BUN 32 mg/dL (8-23); BUN/CREATININE RATIO 37 (12-20 (CALC)); CARBON DIOXIDE 26 mmol/l (22-30); CHLORIDE 103 mmol/l (95-108); CREATININE 0.9 mg/dL (0.5-1.0); GFR 60 ML/MIN (>=60 (CALC)); GFR FOR AFR.AMER. > 60 ML/MIN (>=60 (CALC)); POTASSIUM 4.6 mmol/l (3.5-5.1); SGOT/AST 23 u/l (9-36); SODIUM 136 mmol/l (137-146); TOTAL PROTEIN 6.7 g/dL (6.3-8.2)
[2021-05-24 13:57] LABS: BILIRUBIN, TOTAL 0.8 mg/dL (0.0-1.4)
[2021-05-24] MEDS ORDERED: SLOW-MAG PO (14:26)
[2021-05-24 16:28] LABS: URINE BILIRUBIN - DIPSTICK NEGATIVE (NEGATIVE); URINE BLOOD DIPSTICK SMALL (NEGATIVE); URINE COLOR YELLOW; URINE GLUCOSE - DIPSTICK NEGATIVE (NEGATIVE); URINE KETONE NEGATIVE (NEGATIVE); URINE LEUK ESTERASE NEGATIVE (NEGATIVE); URINE NITRITE - DIPSTICK NEGATIVE (Negative); URINE PROTEIN - DIPSTICK NEGATIVE (NEG-TRACE); URINE UROBILINOGEN - DIPSTICK 0.2 E.U./dL (0.2)
[2021-05-24 16:38] LABS: URINE SQUAMOUS EPITHELIAL CELL FEW EPI/hpf (0-FEW); URINE WBC 0-2 WBC/hpf (0-5)
== END 2021-05-24 16:40 | disposition home or self-care (01) ==
LOC: ED 12:15
PROVIDERS: Nurse Practitioner
DX: E86.0 Dehydration (principal); C64.1 Malignant neoplasm of right kidney, except renal pelvis; I10 Essential (primary) hypertension; J45.909 Unspecified asthma, uncomplicated; Z90.5 Acquired absence of kidney; Z79.899 Other long term (current) drug therapy

== ENCOUNTER 2021-07-19 19:31 | Emergency (ER) | payer MEDICARE ==
[~2021-07-19] VITALS: Ht 152.4 cm; Wt 77.0 kg
[~2021-07-19 19:31] MED LIST changes: +ZINC50 MG PO
[2021-07-19 19:44] VITALS: BP 133/61
[2021-07-19 20:00] VITALS: BP 124/76
[2021-07-19 20:23] LABS: HEMATOCRIT 33.7 % (37.0-47.0); HEMOGLOBIN 10.9 g/dl (12.0-16.0); IMMATURE GRANULOCYTES 0.5 % (0.0-5.0); MEAN CELL VOLUME 100.9 fL CALC (80.0-100.0); MEAN CORPUSCULAR HGB 32.6 pG CALC (26.0-32.0); MEAN CORPUSCULAR HGB CONC 32.3 g/dL CAL (32.0-36.0); NEUT# 0.86 thou/uL (2.00-7.15); RED BLOOD COUNT 3.34 mill/uL (4.20-5.60); RED CELL DISTRI WIDTH 15.2 % (11.5-15.5)
[2021-07-19 20:30] VITALS: BP 134/68
[2021-07-19 20:49] LABS: ALBUMIN 3.4 g/dL (3.2-5.0); ALKALINE PHOSPHATASE 82 u/l (38-126); ANION GAP 12 (6-22 (CALC)); CARBON DIOXIDE 25 mmol/l (22-30); CHLORIDE 106 mmol/l (95-108); CREATININE 0.7 mg/dL (0.5-1.0); GFR > 60 ML/MIN (>=60 (CALC)); GFR FOR AFR.AMER. > 60 ML/MIN (>=60 (CALC)); POTASSIUM 3.7 mmol/l (3.5-5.1); SGOT/AST 33 u/l (9-36); SODIUM 140 mmol/l (137-146); TOTAL PROTEIN 6.1 g/dL (6.3-8.2)
[2021-07-19 20:50] LABS: BILIRUBIN, TOTAL 0.2 mg/dL (0.0-1.4); BUN 11 mg/dL (8-23); BUN/CREATININE RATIO 16 (12-20 (CALC))
[2021-07-19 21:00] VITALS: BP 133/72
[2021-07-19 21:01] LABS: MYOGLOBIN 21 ng/mL (0 - 62)
[2021-07-19] MEDS ORDERED: CLEOCIN300 MG PO (23:10)
[2021-07-19 23:12] VITALS: BP 133/72
[2021-07-19 23:12] LABS: URINE BILIRUBIN - DIPSTICK NEGATIVE (NEGATIVE); URINE BLOOD DIPSTICK SMALL (NEGATIVE); URINE COLOR YELLOW; URINE GLUCOSE - DIPSTICK NEGATIVE (NEGATIVE); URINE KETONE NEGATIVE (NEGATIVE); URINE PH 5.5 (4.5-8.0); URINE PROTEIN - DIPSTICK NEGATIVE (NEG-TRACE); URINE SPECIFIC GRAVITY <=1.005; URINE UROBILINOGEN - DIPSTICK 0.2 E.U./dL (0.2)
[2021-07-19 23:15] LABS: URINE NITRITE - DIPSTICK NEGATIVE (Negative)
[2021-07-19 23:25] LABS: URINE BACTERIA FEW hpf; URINE EPITHELIAL CELLS FEW EPI/hpf (0-FEW); URINE LEUK ESTERASE NEGATIVE (NEGATIVE)
== END 2021-07-19 23:30 | disposition home or self-care (01) ==
LOC: ED 19:31
PROVIDERS: Emergency Medicine
DX: J18.9 Pneumonia, unspecified organism (principal); I10 Essential (primary) hypertension; J45.909 Unspecified asthma, uncomplicated; F32.A Depression, unspecified; Z85.528 Personal history of other malignant neoplasm of kidney; Z85.118 Personal history of other malignant neoplasm of bronchus and lung; Z90.5 Acquired absence of kidney; Z90.2 Acquired absence of lung [part of]; Z88.1 Allergy status to other antibiotic agents; Z86.711 Personal history of pulmonary embolism; Z92.21 Personal history of antineoplastic chemotherapy; Z20.822 Contact with and (suspected) exposure to COVID-19
CPT/HCPCS: Q9967; S0073

== ENCOUNTER 2022-02-09 10:49 | Emergency (ER) | payer MEDICARE ==
[~2022-02-09] VITALS: Ht 152.4 cm; Wt 70.3 kg
[~2022-02-09 10:49] MED LIST changes: +CLEOCIN300 MG PO
[2022-02-09 11:05] VITALS: BP 103/52
[2022-02-09 11:20] LABS: HEMATOCRIT 31.6 % (37.0-47.0); HEMOGLOBIN 10.4 g/dl (12.0-16.0); IMMATURE GRANULOCYTES 0.4 % (0.0-5.0); MEAN CELL VOLUME 97.8 fL CALC (80.0-100.0); MEAN CORPUSCULAR HGB 32.2 pG CALC (26.0-32.0); MEAN CORPUSCULAR HGB CONC 32.9 g/dL CAL (32.0-36.0); NEUT# 1.6 thou/uL (2.00-7.15); RED BLOOD COUNT 3.23 mill/uL (4.20-5.60); RED CELL DISTRI WIDTH 13.8 % (11.5-15.5)
[2022-02-09 11:30] VITALS: BP 92/41
[2022-02-09 11:46] LABS: ALBUMIN 3.7 g/dL (3.2-5.0); ALKALINE PHOSPHATASE 96 u/l (38-126); ANION GAP 13 (6-22 (CALC)); BILIRUBIN, TOTAL 1.5 mg/dL (0.0-1.4); BUN 19 mg/dL (8-23); BUN/CREATININE RATIO 24 (12-20 (CALC)); CARBON DIOXIDE 26 mmol/l (22-30); CHLORIDE 102 mmol/l (95-108); CREATININE 0.8 mg/dL (0.5-1.0); GFR FOR AFR.AMER. > 60 ML/MIN (>=60 (CALC)); GFR OTHER RACES > 60 ML/MIN (>=60 (CALC)); POTASSIUM 3.9 mmol/l (3.5-5.1); SGOT/AST 29 u/l (9-36); SODIUM 137 mmol/l (137-146); TOTAL PROTEIN 6.6 g/dL (6.3-8.2)
[2022-02-09 12:41] VITALS: BP 103/51
== END 2022-02-09 12:44 | disposition home or self-care (01) ==
LOC: ED 10:49
PROVIDERS: Family Medicine
DX: C78.00 Secondary malignant neoplasm of unspecified lung (principal); J91.8 Pleural effusion in other conditions classified elsewhere; C64.9 Malignant neoplasm of unspecified kidney, except renal pelvis; I10 Essential (primary) hypertension; J45.909 Unspecified asthma, uncomplicated; F32.A Depression, unspecified; Z86.711 Personal history of pulmonary embolism

== ENCOUNTER 2022-03-01 16:50 | Inpatient (IN) | payer MEDICARE ==
[~2022-03-01] VITALS: Ht 152.4 cm; Wt 64.0 kg
[2022-03-01 17:22] VITALS: BP 158/78
[2022-03-01 18:48] LABS: BASO% 1.9 % (0-3); EOS% 1.9 % (0-8); HEMATOCRIT 29.2 % (37.0-47.0); HEMOGLOBIN 9.8 g/dl (12.0-16.0); IMMATURE GRANULOCYTES 4.9 % (0.0-5.0); LYMPH% 35.9 % (15-41); MEAN CELL VOLUME 95.1 fL CALC (80.0-100.0); MEAN CORPUSCULAR HGB 31.9 pG CALC (26.0-32.0); MEAN CORPUSCULAR HGB CONC 33.6 g/dL CAL (32.0-36.0); MONO% 5.8 % (2-13); NEUT# 0.51 thou/uL (2.00-7.15); NEUT% 49.6 % (42-76); RED BLOOD COUNT 3.07 mill/uL (4.20-5.60); RED CELL DISTRI WIDTH 14.2 % (11.5-15.5)
[2022-03-01 19:28] VITALS: BP 116/66
[2022-03-01 19:30] LABS: ALBUMIN 3.4 g/dL (3.2-5.0); ALKALINE PHOSPHATASE 118 u/l (38-126); ANION GAP 14 (6-22 (CALC)); BILIRUBIN, TOTAL 1.1 mg/dL (0.0-1.4); BUN 11 mg/dL (8-23); BUN/CREATININE RATIO 20 (12-20 (CALC)); CARBON DIOXIDE 26 mmol/l (22-30); CHLORIDE 98 mmol/l (95-108); CREATININE 0.5 mg/dL (0.5-1.0); GFR FOR AFR.AMER. > 60 ML/MIN (>=60 (CALC)); GFR OTHER RACES > 60 ML/MIN (>=60 (CALC)); SODIUM 134 mmol/l (137-146); TOTAL PROTEIN 6.4 g/dL (6.3-8.2)
[2022-03-01 19:33] LABS: SGOT/AST 79 u/l (9-36)
[2022-03-01 23:23] VITALS: BP 135/74
[2022-03-02] VITALS (7 sets, daily range): BP systolic 125–183; BP diastolic 59–93
[2022-03-02 06:23] LABS: ALBUMIN 3.1 g/dL (3.2-5.0); ALKALINE PHOSPHATASE 96 u/l (38-126); ANION GAP 14 (6-22 (CALC)); BILIRUBIN, TOTAL 0.7 mg/dL (0.0-1.4); BUN 9 mg/dL (8-23); BUN/CREATININE RATIO 22 (12-20 (CALC)); CARBON DIOXIDE 23 mmol/l (22-30); CHLORIDE 102 mmol/l (95-108); CREATININE 0.4 mg/dL (0.5-1.0); GFR FOR AFR.AMER. > 60 ML/MIN (>=60 (CALC)); GFR OTHER RACES > 60 ML/MIN (>=60 (CALC)); POTASSIUM 4.2 mmol/l (3.5-5.1); SGOT/AST 63 u/l (9-36); SODIUM 134 mmol/l (137-146)
[2022-03-02 06:47] LABS: HEMATOCRIT 28.2 % (37.0-47.0); HEMOGLOBIN 9.5 g/dl (12.0-16.0); IMMATURE GRANULOCYTES 1.8 % (0.0-5.0); LYMPH% 40.4 % (15-41); MEAN CELL VOLUME 95.3 fL CALC (80.0-100.0); MEAN CORPUSCULAR HGB 32.1 pG CALC (26.0-32.0); MEAN CORPUSCULAR HGB CONC 33.7 g/dL CAL (32.0-36.0); MONO% 8.8 % (2-13); NEUT# 0.28 thou/uL (2.00-7.15); RED BLOOD COUNT 2.96 mill/uL (4.20-5.60); RED CELL DISTRI WIDTH 14.3 % (11.5-15.5)
[2022-03-02 09:03] LABS: URINE BLOOD DIPSTICK MODERATE (NEGATIVE); URINE COLOR YELLOW; URINE GLUCOSE - DIPSTICK NEGATIVE (NEGATIVE); URINE KETONE >=80 mg/dL (NEGATIVE); URINE LEUK ESTERASE NEGATIVE (NEGATIVE); URINE PROTEIN - DIPSTICK TRACE mg/dL (NEG-TRACE); URINE SPECIFIC GRAVITY 1.025
[2022-03-02 09:11] LABS: URINE BILIRUBIN - DIPSTICK SMALL (NEGATIVE)
[2022-03-02 09:12] LABS: URINE NITRITE - DIPSTICK NEGATIVE (Negative)
[2022-03-02 09:15] LABS: URINE WBC 0-2 WBC/hpf (0-5)
[2022-03-02 09:17] LABS: URINE WHITE BLOOD CELL CAST RARE lpf
[2022-03-03 03:49] VITALS: BP 137/79
[2022-03-03 04:00] VITALS: BP 137/79
[2022-03-03 06:30] LABS: HEMATOCRIT 26.1 % (37.0-47.0); HEMOGLOBIN 8.6 g/dl (12.0-16.0); IMMATURE GRANULOCYTES 14.5 % (0.0-5.0); LYMPH% 24.6 % (15-41); MEAN CELL VOLUME 95.3 fL CALC (80.0-100.0); MEAN CORPUSCULAR HGB 31.4 pG CALC (26.0-32.0); MONO% 17.4 % (2-13); NEUT# 0.3 thou/uL (2.00-7.15); NEUT% 43.5 % (42-76); RED BLOOD COUNT 2.74 mill/uL (4.20-5.60); RED CELL DISTRI WIDTH 13.9 % (11.5-15.5)
[2022-03-03 07:11] LABS: ALBUMIN 2.8 g/dL (3.2-5.0); ALKALINE PHOSPHATASE 97 u/l (38-126); ANION GAP 9 (6-22 (CALC)); BUN 8 mg/dL (8-23); BUN/CREATININE RATIO 24 (12-20 (CALC)); CARBON DIOXIDE 24 mmol/l (22-30); CHLORIDE 107 mmol/l (95-108); CREATININE 0.3 mg/dL (0.5-1.0); GFR FOR AFR.AMER. > 60 ML/MIN (>=60 (CALC)); GFR OTHER RACES > 60 ML/MIN (>=60 (CALC)); MAGNESIUM 1.6 mg/dL (1.6-2.3); POTASSIUM 3.7 mmol/l (3.5-5.1); SGOT/AST 58 u/l (9-36); SODIUM 136 mmol/l (137-146); TOTAL PROTEIN 5.4 g/dL (6.3-8.2)
[2022-03-03 07:14] LABS: BILIRUBIN, TOTAL 0.4 mg/dL (0.0-1.4)
[2022-03-03 16:10] VITALS: BP 148/67
[2022-03-03 16:12] VITALS: BP 139/70
[2022-03-03 19:00] VITALS: BP 152/77
[2022-03-04] VITALS (7 sets, daily range): BP systolic 123–169; BP diastolic 64–79
[2022-03-04 14:26] LABS: HEMATOCRIT 24.9 % (37.0-47.0); HEMOGLOBIN 8.5 g/dl (12.0-16.0); LYMPH% 5.3 % (15-41); MEAN CELL VOLUME 92.6 fL CALC (80.0-100.0); MEAN CORPUSCULAR HGB 31.6 pG CALC (26.0-32.0); MEAN CORPUSCULAR HGB CONC 34.1 g/dL CAL (32.0-36.0); MONO% 11.1 % (2-13); NEUT# 3.43 thou/uL (2.00-7.15); NEUT% 82.6 % (42-76); RED BLOOD COUNT 2.69 mill/uL (4.20-5.60); RED CELL DISTRI WIDTH 13.8 % (11.5-15.5)
[2022-03-05] VITALS (8 sets, daily range): BP systolic 133–155; BP diastolic 68–80
[2022-03-05 06:22] LABS: HEMATOCRIT 24.4 % (37.0-47.0); HEMOGLOBIN 7.8 g/dl (12.0-16.0); MEAN CELL VOLUME 94.6 fL CALC (80.0-100.0); MEAN CORPUSCULAR HGB 30.2 pG CALC (26.0-32.0); RED BLOOD COUNT 2.58 mill/uL (4.20-5.60); RED CELL DISTRI WIDTH 14.1 % (11.5-15.5)
[2022-03-05 06:24] LABS: IMMATURE GRANULOCYTES 0.2 % (0.0-5.0); LYMPH% 4.6 % (15-41); MONO% 7.8 % (2-13); NEUT# 7.77 thou/uL (2.00-7.15); NEUT% 87.4 % (42-76)
[2022-03-05 06:51] LABS: ALBUMIN 2.8 g/dL (3.2-5.0); ALKALINE PHOSPHATASE 101 u/l (38-126); ANION GAP 6 (6-22 (CALC)); BUN 9 mg/dL (8-23); BUN/CREATININE RATIO 21 (12-20 (CALC)); CARBON DIOXIDE 28 mmol/l (22-30); CHLORIDE 107 mmol/l (95-108); CREATININE 0.4 mg/dL (0.5-1.0); GFR FOR AFR.AMER. > 60 ML/MIN (>=60 (CALC)); GFR OTHER RACES > 60 ML/MIN (>=60 (CALC)); POTASSIUM 3.6 mmol/l (3.5-5.1); SGOT/AST 97 u/l (9-36); SODIUM 137 mmol/l (137-146); TOTAL PROTEIN 5.6 g/dL (6.3-8.2)
[2022-03-05 06:54] LABS: BILIRUBIN, TOTAL 0.8 mg/dL (0.0-1.4)
[2022-03-06] VITALS (18 sets, daily range): BP systolic 127–158; BP diastolic 52–71
[2022-03-06 06:37] LABS: MEAN CELL VOLUME 94.7 fL CALC (80.0-100.0); MEAN CORPUSCULAR HGB 31.8 pG CALC (26.0-32.0); MEAN CORPUSCULAR HGB CONC 33.5 g/dL CAL (32.0-36.0); RED BLOOD COUNT 1.7 mill/uL (4.20-5.60); RED CELL DISTRI WIDTH 14.1 % (11.5-15.5)
[2022-03-06 06:46] LABS: ALBUMIN 2.6 g/dL (3.2-5.0); ALKALINE PHOSPHATASE 99 u/l (38-126); ANION GAP 4 (6-22 (CALC)); BILIRUBIN, TOTAL 0.6 mg/dL (0.0-1.4); BUN 11 mg/dL (8-23); BUN/CREATININE RATIO 21 (12-20 (CALC)); CARBON DIOXIDE 31 mmol/l (22-30); CHLORIDE 106 mmol/l (95-108); CREATININE 0.5 mg/dL (0.5-1.0); GFR FOR AFR.AMER. > 60 ML/MIN (>=60 (CALC)); GFR OTHER RACES > 60 ML/MIN (>=60 (CALC)); POTASSIUM 3.3 mmol/l (3.5-5.1); SGOT/AST 57 u/l (9-36); SODIUM 138 mmol/l (137-146); TOTAL PROTEIN 5.1 g/dL (6.3-8.2)
[2022-03-06 07:11] LABS: HEMATOCRIT 16.1 % (37.0-47.0); HEMOGLOBIN 5.4 g/dl (12.0-16.0)
[2022-03-06 07:12] LABS: IMMATURE GRANULOCYTES 1.7 % (0.0-5.0); MONO% 6.9 % (2-13); NEUT# 9.61 thou/uL (2.00-7.15); NEUT% 82.4 % (42-76)
[2022-03-07 00:24] VITALS: BP 137/61
[2022-03-07 05:01] VITALS: BP 126/61
[2022-03-07 06:30] LABS: HEMATOCRIT 20.7 % (37.0-47.0); HEMOGLOBIN 7.2 g/dl (12.0-16.0); MEAN CORPUSCULAR HGB 30.6 pG CALC (26.0-32.0); MEAN CORPUSCULAR HGB CONC 34.8 g/dL CAL (32.0-36.0); RED BLOOD COUNT 2.35 mill/uL (4.20-5.60); RED CELL DISTRI WIDTH 16.9 % (11.5-15.5)
[2022-03-07 06:37] LABS: ALBUMIN 2.6 g/dL (3.2-5.0); ALKALINE PHOSPHATASE 98 u/l (38-126); ANION GAP 3 (6-22 (CALC)); BUN 8 mg/dL (8-23); BUN/CREATININE RATIO 15 (12-20 (CALC)); CARBON DIOXIDE 31 mmol/l (22-30); CHLORIDE 106 mmol/l (95-108); CREATININE 0.5 mg/dL (0.5-1.0); GFR FOR AFR.AMER. > 60 ML/MIN (>=60 (CALC)); GFR OTHER RACES > 60 ML/MIN (>=60 (CALC)); MAGNESIUM 1.4 mg/dL (1.6-2.3); POTASSIUM 2.9 mmol/l (3.5-5.1); SGOT/AST 61 u/l (9-36); SODIUM 138 mmol/l (137-146); TOTAL PROTEIN 5.2 g/dL (6.3-8.2)
[2022-03-07 06:58] LABS: MEAN CELL VOLUME 88.1 fL CALC (80.0-100.0)
[2022-03-07 09:55] VITALS: BP 142/67
[2022-03-07 14:28] VITALS: BP 156/77
[2022-03-07 16:43] VITALS: BP 145/63
[2022-03-07 19:45] VITALS: BP 149/61
[2022-03-08] VITALS (7 sets, daily range): BP systolic 147–184; BP diastolic 68–93
[2022-03-08 06:20] LABS: ALBUMIN 2.9 g/dL (3.2-5.0); ALKALINE PHOSPHATASE 125 u/l (38-126); ANION GAP 4 (6-22 (CALC)); BUN 5 mg/dL (8-23); BUN/CREATININE RATIO 12 (12-20 (CALC)); CARBON DIOXIDE 32 mmol/l (22-30); CHLORIDE 104 mmol/l (95-108); CREATININE 0.5 mg/dL (0.5-1.0); GFR FOR AFR.AMER. > 60 ML/MIN (>=60 (CALC)); GFR OTHER RACES > 60 ML/MIN (>=60 (CALC)); MAGNESIUM 1.6 mg/dL (1.6-2.3); POTASSIUM 2.9 mmol/l (3.5-5.1); SGOT/AST 51 u/l (9-36); SODIUM 137 mmol/l (137-146); TOTAL PROTEIN 5.5 g/dL (6.3-8.2)
[2022-03-08 06:23] LABS: EOS% 0.7 % (0-8); HEMATOCRIT 21.4 % (37.0-47.0); HEMOGLOBIN 7.5 g/dl (12.0-16.0); IMMATURE GRANULOCYTES 1.6 % (0.0-5.0); LYMPH% 16.9 % (15-41); MEAN CELL VOLUME 87.7 fL CALC (80.0-100.0); MEAN CORPUSCULAR HGB 30.7 pG CALC (26.0-32.0); MONO% 15.5 % (2-13); NEUT# 2.78 thou/uL (2.00-7.15); NEUT% 65.3 % (42-76); RED BLOOD COUNT 2.44 mill/uL (4.20-5.60); RED CELL DISTRI WIDTH 16.5 % (11.5-15.5)
[2022-03-09] VITALS (8 sets, daily range): BP systolic 143–192; BP diastolic 63–88
[2022-03-09 04:42] LABS: BASO% 0.3 % (0-3); EOS% 1.2 % (0-8); HEMOGLOBIN 7.1 g/dl (12.0-16.0); IMMATURE GRANULOCYTES 1.8 % (0.0-5.0); LYMPH% 20.4 % (15-41); MEAN CELL VOLUME 88.6 fL CALC (80.0-100.0); MEAN CORPUSCULAR HGB CONC 33.8 g/dL CAL (32.0-36.0); MONO% 15.3 % (2-13); NEUT# 2.03 thou/uL (2.00-7.15); RED BLOOD COUNT 2.37 mill/uL (4.20-5.60); RED CELL DISTRI WIDTH 16.1 % (11.5-15.5)
[2022-03-09 04:55] LABS: ALBUMIN 2.6 g/dL (3.2-5.0); ALKALINE PHOSPHATASE 119 u/l (38-126); ANION GAP 4 (6-22 (CALC)); BUN 6 mg/dL (8-23); BUN/CREATININE RATIO 12 (12-20 (CALC)); CARBON DIOXIDE 31 mmol/l (22-30); CHLORIDE 103 mmol/l (95-108); CREATININE 0.5 mg/dL (0.5-1.0); GFR FOR AFR.AMER. > 60 ML/MIN (>=60 (CALC)); GFR OTHER RACES > 60 ML/MIN (>=60 (CALC)); MAGNESIUM 1.7 mg/dL (1.6-2.3); POTASSIUM 2.9 mmol/l (3.5-5.1); SGOT/AST 47 u/l (9-36); SODIUM 135 mmol/l (137-146); TOTAL PROTEIN 5.1 g/dL (6.3-8.2)
[2022-03-09] MEDS ORDERED: COZAAR100 MG PO (20:32)
[2022-03-10] VITALS (7 sets, daily range): BP systolic 120–200; BP diastolic 52–71
[2022-03-10 05:27] LABS: BASO% 0.3 % (0-3); EOS% 1.3 % (0-8); HEMATOCRIT 21.2 % (37.0-47.0); HEMOGLOBIN 7.1 g/dl (12.0-16.0); IMMATURE GRANULOCYTES 2.3 % (0.0-5.0); LYMPH% 22.8 % (15-41); MEAN CELL VOLUME 89.1 fL CALC (80.0-100.0); MEAN CORPUSCULAR HGB 29.8 pG CALC (26.0-32.0); MEAN CORPUSCULAR HGB CONC 33.5 g/dL CAL (32.0-36.0); MONO% 14.1 % (2-13); NEUT# 1.76 thou/uL (2.00-7.15); NEUT% 59.2 % (42-76); RED BLOOD COUNT 2.38 mill/uL (4.20-5.60); RED CELL DISTRI WIDTH 15.8 % (11.5-15.5)
[2022-03-10 06:03] LABS: ANION GAP 7 (6-22 (CALC)); BUN 5 mg/dL (8-23); BUN/CREATININE RATIO 13 (12-20 (CALC)); CARBON DIOXIDE 28 mmol/l (22-30); CHLORIDE 104 mmol/l (95-108); CREATININE 0.4 mg/dL (0.5-1.0); GFR FOR AFR.AMER. > 60 ML/MIN (>=60 (CALC)); GFR OTHER RACES > 60 ML/MIN (>=60 (CALC)); MAGNESIUM 1.5 mg/dL (1.6-2.3); POTASSIUM 3.1 mmol/l (3.5-5.1); SODIUM 135 mmol/l (137-146)
[2022-03-11 00:04] VITALS: BP 156/68
[2022-03-11 03:44] VITALS: BP 149/67
[2022-03-11 04:56] LABS: BASO% 0.4 % (0-3); EOS% 1.5 % (0-8); HEMOGLOBIN 7.2 g/dl (12.0-16.0); IMMATURE GRANULOCYTES 2.2 % (0.0-5.0); LYMPH% 16.9 % (15-41); MEAN CELL VOLUME 90.6 fL CALC (80.0-100.0); MEAN CORPUSCULAR HGB 28.3 pG CALC (26.0-32.0); MEAN CORPUSCULAR HGB CONC 31.3 g/dL CAL (32.0-36.0); MONO% 10.5 % (2-13); NEUT# 1.83 thou/uL (2.00-7.15); NEUT% 68.5 % (42-76); RED BLOOD COUNT 2.54 mill/uL (4.20-5.60); RED CELL DISTRI WIDTH 16.2 % (11.5-15.5)
[2022-03-11 05:14] LABS: ALBUMIN 2.7 g/dL (3.2-5.0); ALKALINE PHOSPHATASE 112 u/l (38-126); ANION GAP 4 (6-22 (CALC)); BILIRUBIN, TOTAL 1.2 mg/dL (0.0-1.4); BUN 6 mg/dL (8-23); BUN/CREATININE RATIO 13 (12-20 (CALC)); CARBON DIOXIDE 32 mmol/l (22-30); CHLORIDE 103 mmol/l (95-108); CREATININE 0.4 mg/dL (0.5-1.0); GFR FOR AFR.AMER. > 60 ML/MIN (>=60 (CALC)); GFR OTHER RACES > 60 ML/MIN (>=60 (CALC)); POTASSIUM 2.8 mmol/l (3.5-5.1); SGOT/AST 53 u/l (9-36); SODIUM 135 mmol/l (137-146); TOTAL PROTEIN 5.2 g/dL (6.3-8.2)
[2022-03-11 06:27] VITALS: BP 152/67
[2022-03-11 10:51] VITALS: BP 148/60
[2022-03-11 15:30] VITALS: BP 156/62
[2022-03-11 19:12] VITALS: BP 159/69
[2022-03-12] VITALS (9 sets, daily range): BP systolic 119–155; BP diastolic 56–78
[2022-03-12 06:08] LABS: ALBUMIN 2.5 g/dL (3.2-5.0); ALKALINE PHOSPHATASE 105 u/l (38-126); ANION GAP 5 (6-22 (CALC)); BUN 5 mg/dL (8-23); BUN/CREATININE RATIO 10 (12-20 (CALC)); CARBON DIOXIDE 29 mmol/l (22-30); CHLORIDE 104 mmol/l (95-108); CREATININE 0.5 mg/dL (0.5-1.0); GFR FOR AFR.AMER. > 60 ML/MIN (>=60 (CALC)); GFR OTHER RACES > 60 ML/MIN (>=60 (CALC)); POTASSIUM 2.7 mmol/l (3.5-5.1); SGOT/AST 45 u/l (9-36); SODIUM 135 mmol/l (137-146)
[2022-03-12 06:09] LABS: BASO% 0.3 % (0-3); EOS% 1.3 % (0-8); HEMATOCRIT 21.5 % (37.0-47.0); HEMOGLOBIN 7.2 g/dl (12.0-16.0); LYMPH% 18.2 % (15-41); MEAN CELL VOLUME 90.7 fL CALC (80.0-100.0); MEAN CORPUSCULAR HGB 30.4 pG CALC (26.0-32.0); MEAN CORPUSCULAR HGB CONC 33.5 g/dL CAL (32.0-36.0); MONO% 12.4 % (2-13); NEUT# 2.05 thou/uL (2.00-7.15); NEUT% 66.8 % (42-76); RED BLOOD COUNT 2.37 mill/uL (4.20-5.60); RED CELL DISTRI WIDTH 16.7 % (11.5-15.5)
[2022-03-13] VITALS (8 sets, daily range): BP systolic 107–158; BP diastolic 49–75
[2022-03-13 08:44] LABS: HEMATOCRIT 20.2 % (37.0-47.0); MEAN CORPUSCULAR HGB 30.2 pG CALC (26.0-32.0); MEAN CORPUSCULAR HGB CONC 33.2 g/dL CAL (32.0-36.0); RED BLOOD COUNT 2.22 mill/uL (4.20-5.60); RED CELL DISTRI WIDTH 17.4 % (11.5-15.5)
[2022-03-13 08:48] LABS: HEMOGLOBIN 6.7 g/dl (12.0-16.0)
[2022-03-13 09:07] LABS: ANION GAP 5 (6-22 (CALC)); BUN 5 mg/dL (8-23); BUN/CREATININE RATIO 12 (12-20 (CALC)); CARBON DIOXIDE 30 mmol/l (22-30); CHLORIDE 103 mmol/l (95-108); CREATININE 0.4 mg/dL (0.5-1.0); GFR FOR AFR.AMER. > 60 ML/MIN (>=60 (CALC)); GFR OTHER RACES > 60 ML/MIN (>=60 (CALC)); POTASSIUM 3.2 mmol/l (3.5-5.1); SODIUM 135 mmol/l (137-146)
[2022-03-13] MEDS ORDERED: POTASSIUM CHLO20 MEQ PO (17:18)
[2022-03-13] MEDS ORDERED: LORAZEPAM0.5 MG PO (17:19)
[2022-03-13] MEDS ORDERED: SLOW-MAG PO (17:19)
== END 2022-03-13 18:08 | disposition home health service (06) | DRG 808 ==
LOC: MS2 16:50
PROVIDERS: Internal Medicine; Nurse Practitioner Family; ADMIT Internal Medicine; ATTEND Internal Medicine
PROC: 0W993ZZ Drainage of Right Pleural Cavity, Percutaneous Approach (ICD-10-PCS; principal; 2022-03-05)
PROC: 30233N1 Transfusion of Nonautologous Red Blood Cells into Peripheral Vein, Percutaneous Approach (ICD-10-PCS; 2022-03-06)
PROC: 30233N1 Transfusion of Nonautologous Red Blood Cells into Peripheral Vein, Percutaneous Approach (ICD-10-PCS; 2022-03-06)
PROC: 30233R1 Transfusion of Nonautologous Platelets into Peripheral Vein, Percutaneous Approach (ICD-10-PCS; 2022-03-06)
PROC: 30233R1 Transfusion of Nonautologous Platelets into Peripheral Vein, Percutaneous Approach (ICD-10-PCS; 2022-03-07)
PROC: 30233N1 Transfusion of Nonautologous Red Blood Cells into Peripheral Vein, Percutaneous Approach (ICD-10-PCS; 2022-03-13)
DX: D61.810 Antineoplastic chemotherapy induced pancytopenia (principal); J18.9 Pneumonia, unspecified organism; J91.0 Malignant pleural effusion; E22.2 Syndrome of inappropriate secretion of antidiuretic hormone; R11.2 Nausea with vomiting, unspecified; R53.1 Weakness; D70.2 Other drug-induced agranulocytosis; R50.81 Fever presenting with conditions classified elsewhere; T45.1X5A Adverse effect of antineoplastic and immunosuppressive drugs, initial encounter; C67.9 Malignant neoplasm of bladder, unspecified; G89.3 Neoplasm related pain (acute) (chronic); I95.9 Hypotension, unspecified; E83.42 Hypomagnesemia; E87.6 Hypokalemia; R23.3 Spontaneous ecchymoses; I10 Essential (primary) hypertension; F32.A Depression, unspecified; M19.90 Unspecified osteoarthritis, unspecified site; Z90.5 Acquired absence of kidney; Z85.528 Personal history of other malignant neoplasm of kidney; Z79.01 Long term (current) use of anticoagulants; Z95.828 Presence of other vascular implants and grafts; Z79.899 Other long term (current) drug therapy; Z20.822 Contact with and (suspected) exposure to COVID-19
CPT/HCPCS: G0378; G0379; J1447; J3475; P9016; P9034; S0073